=== PATIENT | male | born 1980 | race Caucasian/White ===

== ENCOUNTER 2023-10-22 16:39 | Emergency (ER) | payer BC ==
[~2023-10-22] VITALS: Ht 175.3 cm; Wt 91.0 kg
[2023-10-22 16:42] VITALS: O2SAT 99
[2023-10-22] MEDS: SODIUM CHLORIDE 0.9% 1,000 ML IV ONE (16:58)
[2023-10-22 17:29] LABS: BASOPHILS % 0.7 % (0.0-2.0); EOSINOPHILS % 2.2 % (0.0-5.0); HEMATOCRIT. 41.9 % (42.0-52.0); HEMOGLOBIN. 13.7 g/dL (14.0-18.0); LYMPHOCYTES % 27.2 % (20.0-50.0); MEAN CORPUSCULAR HEMOGLOBIN 27.9 pg (28.0-32.0); MEAN CORPUSCULAR HGB CONC 32.7 g/dL (31.0-37.0); MEAN CORPUSCULAR VOLUME 85.4 fL (80.0-94.0); MEAN PLATELET VOLUME 9.1 fl (7.4-10.4); MONOCYTES % 7.1 % (2.0-8.0); NEUTROPHILS % 62.8 % (40.0-76.0); PLATELET 312 x1000/uL (130-400); RED CELL DISTRIBUTION WIDTH 13.2 % (11.6-14.6); WHITE BLOOD COUNT 7.7 x1000/uL (4.5-11.0)
[2023-10-22 17:31] LABS: CHLORIDE 103 mEq/L (98-107); POTASSIUM 4.6 mEq/L (3.5-5.1); SODIUM 139 mEq/L (136-145)
[2023-10-22 17:32] LABS: CARBON DIOXIDE 30 mEq/L (21-32)
[2023-10-22 17:33] LABS: CALCIUM 9.9 mg/dL (8.7-10.4)
[2023-10-22 17:37] LABS: CREATININE 1.4 mg/dL (0.6-1.3)
[2023-10-22 17:38] LABS: GLUCOSE 261 mg/dL (70-105); UREA NITROGEN BLOOD 19 mg/dL (9-23)
[2023-10-22 17:39] LABS: TROPONIN I HIGH SENSITIVITY 4 ng/L (3.0-53)
[2023-10-22 17:40] LABS: PROTHROMBIN TIME 10.8 sec (9.6-11.0)
[2023-10-22 18:44] LABS: CLARITY URINE CLEAR (CLEAR); COLOR URINE YELLOW (YELLOW); GLUCOSE URINE 3+ (NEGATIVE); KETONES URINE NEGATIVE (NEGATIVE); LEUKOCYTE ESTERASE URINE NEGATIVE (NEGATIVE); NITRITE URINE NEGATIVE (NEGATIVE); OCCULT BLOOD URINE NEGATIVE (NEGATIVE); PH URINE 6.5 (4.5-8.0); PROTEIN URINE NEGATIVE (NEGATIVE); SPECIFIC GRAVITY URINE 1.026 (1.005-1.030); UROBILINOGEN URINE 0.2 E.U./dL (0.2-1.0)
[2023-10-22 19:06] LABS: BACTERIA URINE NONE SEEN; RBC URINE NONE SEEN /hpf (0-2); WBC URINE 0-2 /hpf (0-2)
[2023-10-22 19:28] VITALS: BP 111/68; PULSE 75; RESP 14; TEMP 98
== END 2023-10-22 19:28 | disposition home or self-care (01) ==
LOC: ER 16:39
DX: R55 Syncope and collapse (principal); N17.9 Acute kidney failure, unspecified; E11.9 Type 2 diabetes mellitus without complications; I10 Essential (primary) hypertension; E78.00 Pure hypercholesterolemia, unspecified; Z20.822 Contact with and (suspected) exposure to COVID-19
CPT/HCPCS: 99284; 96360; 71045; 87426; 80048; 81003; 85025; 85610; 84484; 36415; J7030